=== PATIENT | female | born 1970 | race Caucasian/White ===

== ENCOUNTER 2019-10-22 08:30 | Emergency (ER) | payer BC ==
[~2019-10-22] VITALS: Ht 162.6 cm; Wt 77.1 kg
== END 2019-10-22 12:11 | disposition short-term general hospital (02) ==
LOC: ED 08:30
DX: N13.6 Pyonephrosis (principal)
CPT/HCPCS: 74176; 80053; 81001; 83690; 84703; 85025; 87088; 96361; 96365; 96375; 99285-25; J0696; J1885; J2405; J7030